=== PATIENT | female | born 1980 | race Two or more races ===

== ENCOUNTER 2016-07-09 19:17 | Emergency (ER) | payer SELFPAY ==
[~2016-07-09] VITALS: Ht 144.8 cm; Wt 72.2 kg
[2016-07-09 20:35] LABS: BILIRUBIN,URINE NEGATIVE (NEG); GLUCOSE,URINE NEGATIVE (NEG); NITRITE,URINE NEGATIVE (NEG); PH,URINE 6.5; PROTEIN,URINE NEGATIVE (NEG-TRACE); UROBILINOGEN,URINE 0.2 mg/dL (0.2 mg/dL)
[2016-07-09 20:41] LABS: BACTERIA,URINE FEW /HPF (0-FEW); RBC,URINE OCC /HPF (0-2); SQUAMOUS EPITHELIAL CELL,UR MOD /LPF
[2016-07-09 20:41] LABS: BASO % 0 % (0-3); EOS % 2 % (0-3); HEMATOCRIT 41.6 % (36.0-47.0); HEMOGLOBIN 13.8 g/dL (12.0-15.5); LYMPH # 3.2 x10^3/uL (1.0-4.8); LYMPH % 32 % (24-48); MEAN CORPUSCULAR HEMOGLOBIN 31 pg (25-35); MEAN CORPUSCULAR HGB CONC 33 g/dL (31-37); MEAN CORPUSCULAR VOLUME 92 fL (79-100); MONO % 7 % (0-9); NEUT % 59 % (31-73); PLATELET COUNT 223 x10^3/uL (140-400); RED BLOOD COUNT 4.54 x10^6/uL (3.50-5.40); RED CELL DISTRIBUTION WIDTH 13.1 % (11.5-14.5); WHITE BLOOD COUNT 9.9 x10^3/uL (4.0-11.0)
[2016-07-09 20:50] LABS: CALCIUM 8.4 mg/dL (8.5-10.1); CREATININE 0.8 mg/dL (0.6-1.0); GFR 82.1; POTASSIUM 3.4 mmol/L (3.5-5.1)
[2016-07-09 21:05] LABS: ALBUMIN 3.6 g/dL (3.4-5.0); ALBUMIN/GLOBULIN RATIO 0.9 (1.0-1.7); TOTAL BILIRUBIN 0.3 mg/dL (0.2-1.0); TOTAL PROTEIN 7.8 g/dL (6.4-8.2)
[2016-07-09] MEDS ORDERED: IV NORMAL SALINE 1000ML BAG 1,000 ML IV SCH (21:10)
[2016-07-09] MEDS ORDERED: ONDANSETRON PF 4 MG/2 ML VIAL. IV ONE (21:15)
[2016-07-09] MEDS ORDERED: MORPHINE SULFATE 4 MG/ML DISP.SYRIN. IV ONE (21:15)
[2016-07-09 22:00] VITALS: BP 103/62
--- NOTE | 2016-07-09 22:24 | RAD ---
PROCEDURE Abdomen sonogram. HISTORY Right upper quadrant pain. TECHNIQUE Sonographic imaging of the abdomen is performed. COMPARISON None. FINDINGS The liver is normal in size. There is hepatic steatosis. There is a 1.6 cm hyperechoic lesion within the left hepatic lobe, most likely a hemangioma. There is a 3.5 cm hypoechoic lesion within the right hepatic lobe, indeterminate in etiology. The gallbladder is contracted. The common bile duct is normal in caliber. The right kidney and inferior vena cava are unremarkable. The pancreas is partially obscured due to bowel gas. IMPRESSION 1. Hepatic steatosis. 2. 1.6 cm hyperechoic lesion within the left hepatic lobe, the appearance of which favors a hemangioma. Liver protocol CT or MRI can be performed to confirm benignity. 3. 3.5 cm hypoechoic lesion within the right hepatic lobe. The differential includes focal fatty sparing as well as hepatic neoplasm. Once again, liver protocol CT or MRI can be performed for characterization. 4. Contracted gallbladder, possibly due to the postprandial status of the patient. This limits evaluation. Electronically signed by: Pavithra Ann (Jul 09, 2016 22:23:18)
[2016-07-09] MEDS ORDERED: CONTRAST GIVEN MC PRN (23:15)
[2016-07-09] MEDS ORDERED: IOHEXOL 300 MG/ML 75 ML VIAL IV ONE (23:30)
--- NOTE | 2016-07-09 23:34 | RAD ---
PROCEDURE Abdomen CT with without contrast. HISTORY Liver lesions on sonogram. TECHNIQUE Computed tomographic images of the abdomen were obtained prior to and following the administration of 75 cc Omnipaque 300 intravenous contrast. One or more of the following individualized dose reduction techniques were utilized for this examination: 1. Automated exposure control; 2. Adjustment of the mA and/or kV according to patient size; 3. Use of iterative reconstruction technique. COMPARISON Sonogram obtained on the same date. FINDINGS Evaluation of the lower thorax is unremarkable. There is a 1.2 cm hypodense lesion with slight indistinct margins within the left hepatic lobe. This demonstrates a possible tiny focus of nodular peripheral enhancement on arterial and appears isodense to liver on delayed images, favoring a hemangioma. The recently demonstrated 3.5 cm hypoechoic lesion within the right hepatic lobe demonstrates no CT correlate, favoring sonographic artifact or focal fatty infiltration. The gallbladder, pancreas, spleen, and adrenal glands are unremarkable. There are 2 mm right and 4 mm left inferior renal stones. There is no obstructive uropathy. There is a small fat containing umbilical hernia. The appendix is unremarkable. There is no bowel obstruction. There is no pathologically enlarged lymph node. There is no suspicious osseous lesion. IMPRESSION 1. Suspected 1.2 cm hemangioma within the left hepatic lobe. 2. No CT correlate for a 3.5 cm hypoechoic lesion within the right hepatic lobe on the recent abdomen sonogram, favoring sonographic artifact or geographic fatty infiltration rather than a neoplasm. Sonographic follow-up can be performed to confirm stability or resolution. 3. Left greater than right nephrolithiasis. Electronically signed by: Pavithra Ann (Jul 09, 2016 23:31:34)
[2016-07-09] MEDS ORDERED: ACET-704 PO (23:59)
[2016-07-09] MEDS ORDERED: OMEP20TA PO (23:59)
--- NOTE | 2016-07-10 00:01 | PHYS DOC ---
Past Medical History Past Medical History: Anxiety, Other Additional Past Medical Histor: PRE-DM Past Surgical History: No Surgical History Alcohol Use: None Drug Use: None Adult General Chief Complaint Chief Complaint: ABDOMINAL PAIN HPI HPI Patient is a 36 year old female who presents with multiple complaints. Patient reports over the past month she has had episodes of dizziness, has been feeling tired, has had epigastric pain, and has had her urine become darker than usual. The symptoms are worse the past week. She was seen at an clinic, and told her hemoglobin A1c was 6.5. She was also told it is possible she has rheumatoid arthritis. She has not taken anything for symptoms today. Review of Systems Review of Systems Constitutional: Dizzy, fatigue. Denies fever or chills Eyes: Denies change in visual acuity or eye pain HENT: Denies nasal congestion or sore throat Respiratory: Denies cough or shortness of breath Cardiovascular: Denies chest pain GI: Epigastric pain. Denies nausea, vomiting, bloody stools or diarrhea : Dark urine. Denies dysuria or hematuria Musculoskeletal: Intermittent R knee pain (not now) Integument: Denies rash or skin lesions Neurologic: Denies headache, focal weakness or sensory changes Current Medications Current Medications Current Medications Medications (Trade) Dose Ordered Sig/Silvano Start Time Stop Time Status Last Admin Dose Admin Info (Do NOT chart on this entry -- for MONITORING) 1 each PRN DAILY PRN 07/09/16 23:15 07/10/16 00:50 DC Iohexol (Omnipaque 300 Mg/ml) 75 ml 1X ONCE 07/09/16 23:30 07/09/16 23:31 DC 07/09/16 23:19 75 ML Morphine Sulfate 4 mg 1X ONCE 07/09/16 21:15 07/09/16 21:16 DC 07/09/16 22:01 4 MG Ondansetron HCl (Zofran) 4 mg 1X ONCE 07/09/16 21:15 07/09/16 21:16 DC 07/09/16 22:01 4 MG Sodium Chloride (Iv Sodium Chloride 0.9% 1000ml Bag) 1,000 ml @ 1,000 mls/hr Q1H 07/09/16 21:10 07/09/16 22:09 DC 07/09/16 22:00 1,000 MLS/HR Allergies Allergies Allergies Coded Allergies Type Severity Reaction Last Updated Verified No Known Drug Allergies 07/09/16 No Physical Exam Physical Exam Constitutional: Well developed, well nourished, no acute distress, non-toxic appearance HENT: Normocephalic, atraumatic, bilateral external ears normal Eyes: EOMI, conjunctiva normal, no discharge Neck: Normal range of motion, no stridor Cardiovascular: Heart rate normal, regular rhythm, no murmur Lungs & Thorax: Bilateral breath sounds clear to auscultation Abdomen: Bowel sounds normal, soft, non-distended, epigastric RUQ TTP without guarding or rebound Skin: Warm, dry, no erythema, no rash Extremities: No obvious deformity, no edema Neurologic: Alert and oriented X 3, no gross deficits noted Psychologic: Affect normal, judgement normal, mood normal Current Patient Data Vital Signs Vital Signs Date Time Temp Pulse Resp B/P Pulse Ox O2 Delivery O2 Flow Rate FiO2 07/09/16 22:01 18 98 Room Air 07/09/16 22:00 76 103/62 07/09/16 19:50 98.6 98.6 Lab Values Laboratory Tests Test 07/09/16 19:32 07/09/16 19:56 07/09/16 20:25 POC Urine HCG, Qualitative Hcg negative (Negative) Urine Collection Type Unknown Urine Color Yellow Urine Clarity Clear Urine pH 6.5 Urine Specific Higginson 1.010 Urine Protein Negativemg/dL (NEG-TRACE) Urine Glucose (UA) Negativemg/dL (NEG) Urine Ketones (Stick) Negativemg/dL (NEG) Urine Blood Negative (NEG) Urine Nitrite Negative (NEG) Urine Bilirubin Negative (NEG) Urine Urobilinogen Dipstick 0.2mg/dL (0.2 mg/dL) Urine Leukocyte Esterase Negative (NEG) Urine RBC Occ/HPF (0-2) Urine WBC 1-4/HPF (0-4) Urine Squamous Epithelial Cells Mod/LPF Urine Bacteria Few/HPF (0-FEW) Urine Mucus Slight/LPF White Blood Count 9.9x10^3/uL (4.0-11.0) Red Blood Count 4.54x10^6/uL (3.50-5.40) Hemoglobin 13.8g/dL (12.0-15.5) Hematocrit 41.6% (36.0-47.0) Mean Corpuscular Volume 92fL (79-100) Mean Corpuscular Hemoglobin 31pg (25-35) Mean Corpuscular Hemoglobin Concent 33g/dL (31-37) Red Cell Distribution Width 13.1% (11.5-14.5) Platelet Count 223x10^3/uL (140-400) Neutrophils (%) (Auto) 59% (31-73) Lymphocytes (%) (Auto) 32% (24-48) Monocytes (%) (Auto) 7% (0-9) Eosinophils (%) (Auto) 2% (0-3) Basophils (%) (Auto) 0% (0-3) Neutrophils # (Auto) 5.8x10^3uL (1.8-7.7) Lymphocytes # (Auto) 3.2x10^3/uL (1.0-4.8) Monocytes # (Auto) 0.7x10^3/uL (0.0-1.1) Eosinophils # (Auto) 0.2x10^3/uL (0.0-0.7) Basophils # (Auto) 0.0x10^3/uL (0.0-0.2) Sodium Level 140mmol/L (136-145) Potassium Level 3.4mmol/L (3.5-5.1) L Chloride Level 104mmol/L (98-107) Carbon Dioxide Level 26mmol/L (21-32) Anion Gap 10 (6-14) Blood Urea Nitrogen 11mg/dL (7-20) Creatinine 0.8mg/dL (0.6-1.0) Estimated GFR (Cockcroft-Gault) 82.1 BUN/Creatinine Ratio 14 (6-20) Glucose Level 94mg/dL (70-99) Calcium Level 8.4mg/dL (8.5-10.1) L Total Bilirubin 0.3mg/dL (0.2-1.0) Aspartate Amino Transferase (AST) 15U/L (15-37) Alanine Aminotransferase (ALT) 28U/L (14-59) Alkaline Phosphatase 100U/L (46-116) Total Protein 7.8g/dL (6.4-8.2) Albumin 3.6g/dL (3.4-5.0) Albumin/Globulin Ratio 0.9 (1.0-1.7) L Lipase 162U/L (73-393) Laboratory Tests 07/09/16 20:25 Laboratory Tests 07/09/16 20:25 EKG EKG [] Radiology/Procedures Radiology/Procedures RUQ US: IMPRESSION 1. Hepatic steatosis. 2. 1.6 cm hyperechoic lesion within the left hepatic lobe, the appearance of which favors a hemangioma. Liver protocol CT or MRI can be performed to confirm benignity. 3. 3.5 cm hypoechoic lesion within the right hepatic lobe. The differential includes focal fatty sparing as well as hepatic neoplasm. Once again, liver protocol CT or MRI can be performed for characterization. 4. Contracted gallbladder, possibly due to the postprandial status of the patient. This limits evaluation. CT Abdomen (liver protocol): IMPRESSION 1. Suspected 1.2 cm hemangioma within the left hepatic lobe. 2. No CT correlate for a 3.5 cm hypoechoic lesion within the right hepatic lobe on the recent abdomen sonogram, favoring sonographic artifact or geographic fatty infiltration rather than a neoplasm. Sonographic follow-up can be performed to confirm stability or resolution. 3. Left greater than right nephrolithiasis. Course & Med Decision Making Course & Med Decision Making Pertinent Labs and Imaging studies reviewed. (See chart for details) Patient is 36-year-old female who presents with multiple complaints. Will check labs, UA, right upper quadrant ultrasound to evaluate. IV fluids, pain meds, nausea meds ordered for symptom relief. Labs unremarkable. Right upper quadrant ultrasound results as above; given these results, CT abdomen ordered to further evaluate liver. Results as above. Discussed results with patient, who is feeling better at this time. Will discharge home with prescription for meds for symptomatic control, instructions for follow-up, return precautions. Dragon Disclaimer Dragon Disclaimer This electronic medical record was generated, in whole or in part, using a voice recognition dictation system. Departure Departure Impression: Primary Impression: Epigastric abdominal pain Additional Impressions: Dizziness Fatigue Disposition: HOME, SELF-CARE Condition: STABLE Referrals: NO PCP (PCP) MARY PENA MD Patient Instructions: Abdominal Pain (Nonspecific), Dizziness, Fatigue Additional Instructions: Thank you for allowing us to provide care today in the Emergency Department. Take the provided medication as directed. Use caution when taking the pain medication as it can make you drowsy. Schedule a follow up appointment with your primary care doctor and with a long chain quiller tender using the provided contact information. Return promptly to the Emergency Department if you develop any new or concerning symptoms. Scripts Acetaminophen With Codeine (Tylenol With Codeine #3 Tablet)1 Each Tablet1 Tab PO PRN Q6HRS PRN PAIN #15 TAB Prov:LE LAWS MD 07/09/16 Omeprazole 20 Mg Tablet.dr20 Mg PO DAILY #30 TAB Prov:LE LAWS MD 07/09/16 Problem Qualifiers LE LAWS MD Jul 10, 2016 00:01
--- NOTE | 2016-07-10 08:27 | EKG ---
[facility] [address] [place] [address] Test Date: 2016-07-09 Test Time: 22:13:26 Pat Name: ABEBA DIXON Department: Room: Gender: F [employer]: : [id number] Requested By: LE LAWS Order Number: [id number] Reading MD: Evelyn Reddy Measurements Intervals [place] Rate: 75 P: 31 LA: 162 QRS: 12 QRSD: 84 T: 8 QT: 396 QTc: 445 Interpretive Statements SINUS RHYTHM NORMAL ECG RI6.01 No previous ECG available for comparison Electronically Signed On 07-14-2016 15:02:47 CDT by Evelyn Reddy
== END 2016-07-10 00:49 | disposition home or self-care (01) ==
LOC: ER 19:17
DX: R42 Dizziness and giddiness (principal); R10.13 Epigastric pain; R53.83 Other fatigue; F41.9 Anxiety disorder, unspecified
CPT/HCPCS: 36415; 74170; 76705; 80053; 81001; 81025; 83690; 85027; 93005; 96361; 96374; 96375; 99285; J2270; J2405; J7030; Q9967